=== PATIENT | female | born 1980 | race Caucasian/White ===

== ENCOUNTER 2023-08-16 04:04 | Inpatient (IN) ==
[2023-08-16] MEDS ORDERED: HALOPERIDOL LACTATE 5 MG/ML 1 ML VIAL IM STA (04:11)
[2023-08-16] MEDS ORDERED: LORazepam 1 MG/1 ML SYR ED Inj Use IV STA (04:11)
[2023-08-16] MEDS ORDERED: SODIUM CHLORIDE 0.9% 500 ML IV SCH (04:15)
--- NOTE | 2023-08-16 04:18 | Emergency Department Note ---
Impression & Plan AMS (altered mental status), Hx of psychosis ED Provider Note NAME: AB DICKEY AGE: 42 SEX: Female INFORMANT: Police ED PROVIDER(S): Macario Saunders MD CHIEF COMPLAINT: Altered mental status PLAN: Disposition: Admitted Outpatient prescription management: none Referral: none MEDICAL DECISION MAKING: Patient presented by EMS and police after exhibiting bizarre behavior and altered mental status. She was responding to internal stimuli and not following commands. She was thrashing about the bed. She did require physical hold and for her safety as well as staff safety chemical sedation was ordered with Haldol and Ativan. Patient rested comfortably with this. She was found to have an unremarkable CBC. Patient was found to have rhabdomyolysis with an elevated CK over 1000. She was given additional IV fluid hydration. Patient woke up and then was very agitated. She was scared and was verbally confrontational. I did meet with her and she calm down. She was given a sublingual dose of Ativan. IV was reestablished as she did pull her first IV out. Fluids were reinitiated. Patient was explained her rhabdo issue and need for treatment. She was in agreement. She was reevaluated by the psychiatric case packer and sealer. Consultation was placed with [facility] Del [facility]. Patient was evaluated in the ER for further management. Care/management discussed with: mission manager. Level of care consideration(s): After review of the information above and other included data, I feel the patient requires escalation of care to admission. Triage Nursing notes: reviewed and agree them. Vital Signs: reviewed and remarkable for no significant abnormalities Additional History obtained from: EMS and police Chronic Medical/Social Conditions affecting care: Psychosis Prior/ Outside/ External records reviewed: Prior ED records reviewed. Differential Diagnosis: Psychiatric, infection, hypoglycemia, electrolyte abnormalities, overdose, toxicologic, cardiac sources, intracerebral event, neurologic, trauma, as well as other pathologies. Diagnostics, independently interpreted by me: EC Lead ECG performed and revealed Normal sinus rhythm at 90, normal [place], QRS normal except for septal Q. No elevation or depression. No PACs or PVCs Cardiac Monitoring: Cardiac monitoring ordered by me: The patient was placed on continuous cardiac monitoring and observed. It revealed a normal sinus rhythm at 86 beats per minute without ectopy or evidence of dysrhythmia. Medical decision rules: none Imaging studies:Head CT without trauma, bleed or stroke. HPI: 42 year old Female arrives for evaluation of altered mental status. Patient is unable to provide any significant details for the history. Police note that they were called along with EMS due to her bizarre behavior. She was outside and was wet. Patient's significant other noted that she has not slept in 4 days. Patient does have a history of psychosis. Unsure if she has been compliant with medications. Police did raise concerns about possible stimulant use. PAST MEDICAL HISTORY: See Below, psychosis PAST SURGICAL HISTORY: See Below, SOCIAL HISTORY: See Below, smoker HOME MEDICATIONS: See Below ALLERGIES: See Below VITALS: See Below PHYSICAL EXAMINATION: GENERAL: Awake, alert, agitated-appearing, in moderate distress HENT: Normocephalic, atraumatic. Oropharynx unremarkable. EYES: Normal conjunctiva. Sclera non-icteric. NECK: Inspection normal. Non-tender. Supple. No nuchal rigidity. FROM. No masses. RESPIRATORY: Clear to auscultation. No wheezes. No rales. Normal respiratory effort. CARDIAC: Tachycardic rate. Normal rhythm. No murmurs. No rubs. Extremities warm and well perfused. Pulses equal. No JVD. GI: Soft, non-distended. No tenderness to palpation. No rebound or guarding. No masses. RECTAL: Deferred. MUSCULOSKELETAL: Atraumatic. Chest examination reveals no tenderness. The back is symmetrical on inspection without obvious abnormality. There is no CVA tenderness to palpation. No joint edema. LOWER EXTREMITIES: Calves are equal size bilaterally and non-tender. No edema. No discoloration. NEURO: Altered sensorium. Moving arms and legs vigorously. No focal deficits. Responding to internal stimuli but speech is relatively clear. SKIN: No rash or jaundice noted. Multiple drawings and markings from a marker noted on the patient's arms and legs. PSYCH: Patient unable to voice any suicidal or homicidal ideation. She is responding to internal stimuli. PROCEDURES: none CRITICAL CARE: I have personally spent 30 minutes of critical care time in the direct management of this patient. This includes bedside care, interpretation of diagnostic studies, and testing, discussion with consultants, patient, Police, and other required patient management activities. These minutes are in excess of all separately billable procedures. OBSERVATION NOTE: none Past Med/Surg History Medical History (Updated 08/16/23 @ 17:10 by Hector Del Real MD) Psychosis Social History Smoking Status: Current every day smoker Tobacco Type: E-cigarettes / Vaping Hx Substance Use: Yes Preferred Language: Martiniquais [employer] Maintenance Worker Required: No Beliefs That Will Affect Care: None Current Living Situation: Significant Other Feels Safe at Home: Yes Assistive Devices: None Allergies Allergies Allergy/AdvReac Type Severity Reaction Status Date / Time No Known Allergies Allergy Unverified 01/01/22 17:51 Home Meds Home Medications Medication Instructions Recorded Confirmed methadone 10 mg/5 mL oral solution 107 mg PO DAILY 01/01/22 01/09/22 Previous Rx's Medication Instructions Recorded gabapentin 300 mg capsule 300 mg PO BID #60 caps 08/18/23 Results & Data (ED) Vital Signs Vital Signs - 24 hr 08/16/23 04:12 08/16/23 04:12 08/16/23 05:01 Temperature 36.7 C Temperature Source Oral Pulse Rate 91 H 73 Pulse Rate [Apical] Respiratory Rate 18 Respiratory Effort / Characteristics Respiratory Depth Respiratory Pattern Blood Pressure 139/90 Blood Pressure [Right Arm] Blood Pressure Mean 106 Blood Pressure Mean [Right Arm] Pulse Oximetry 97 97 Oxygen Delivery Method Room Air Room Air Sepsis Recent Fever Within 48 Hours No Sepsis New/Unexplained Change in Mental Status N/A Sepsis Action Taken by Nursing No Action Required 08/16/23 05:30 08/16/23 06:00 Temperature Temperature Source Pulse Rate Pulse Rate [Apical] 71 71 Respiratory Rate 15 14 Respiratory Effort / Characteristics Non-Labored Respiratory Depth Normal Respiratory Pattern Regular Blood Pressure Blood Pressure [Right Arm] 104/80 92/60 L Blood Pressure Mean Blood Pressure Mean [Right Arm] 88 70 Pulse Oximetry 96 96 Oxygen Delivery Method Room Air Room Air Sepsis Recent Fever Within 48 Hours Sepsis New/Unexplained Change in Mental Status Sepsis Action Taken by Nursing Laboratory Data 08/16/23 04:24 08/18/23 05:45 Lab Results 08/16/23 08/16/23 08/16/23 Range/Units 04:24 04:48 05:37 WBC 8.34 (4.8-10.8) K/ul RBC 4.32 (4.20-5.40) M/uL Hgb 12.4 (12.0-16.0) g/dl Hct 37.6 (37.0-47.0) % MCV 87.0 (80.0-100.0) fL MCH 28.7 (25.0-34.0) pg MCHC 33.0 (32.0-36.0) g/dL RDW Std Deviation 45.8 (36.4-46.3) fL RDW Coeff of Luna 14.3 (11.5-14.5) % Plt Count 407 H (130-400) K/uL MPV 9.7 (9.4-12.4) fL Immature Gran % (Auto) 0.2 % Neut % (Auto) 70.6 % Lymph % (Auto) 23.4 % [place] % (Auto) 5.5 % Eos % (Auto) 0.1 % Baso % (Auto) 0.2 % Neut # (Auto) 5.88 (1.40-6.50) K/uL Lymph # (Auto) 1.95 (1.20-3.40) K/uL [place] # (Auto) 0.46 (0.11-0.59) K/uL Eos # (Auto) 0.01 (0.00-0.50) K/uL Baso # (Auto) 0.02 (0.00-0.20) K/uL Immature Gran # (Auto) 0.02 (0.01-0.20) K/uL PT 10.9 (9.0-12.0) Seconds INR 1.0 (0.9-1.1) Sodium 139 (136-145) mmol/L Potassium 3.3 L (3.5-5.1) mmol/L Chloride 105 (98-107) mmol/L Carbon Dioxide 27 (21-32) mmol/L Anion Gap 7 (3-11) BUN 13 (6-23) mg/dl Creatinine 0.85 (0.6-1.2) mg/dl Est Cr Clr Drug Dosing Not Reportable Est GFR ( Amer) 98.6 ml/min Est GFR (Non-Af Amer) 85.1 ml/min BUN/Creatinine Ratio 15.3 (10-20) Glucose 110 H (70-99(Fasting)) mg/dl Calcium 9.2 (8.6-10.3) mg/dl Magnesium 2.1 (1.7-2.4) mg/dl Total Bilirubin 0.4 (0.2-1.0) mg/dl AST 37 (13-39) U/L ALT 19 (7-52) U/L Alkaline Phosphatase 47 (34-104) U/L Total Creatine Kinase 1074 H (26-192) U/L Troponin I High Sens 5.1 (0-14) pg/ml Total Protein 7.7 (6.0-8.3) gm/dl Albumin 4.5 (3.4-5.0) gm/dl Globulin 3.2 (2.5-4.0) gm/dl Albumin/Globulin Ratio 1.4 (0.9-2) HCG, Qual Negative (Negative) Urine Color Dark Yellow Urine Appearance Turbid A (Clear) Urine pH 7.5 (4.5-7.5) Ur Specific [place] 1.025 (1.000-1.030) Urine Protein Trace H (Negative) Urine Glucose (UA) Negative (Negative) Urine Ketones Trace H (Negative) Urine Blood Negative (Negative) Urine Nitrite Negative (Negative) Urine Bilirubin Negative (Negative) Urine Urobilinogen Negative (Negative) Ur Leukocyte Esterase 1+ H (Negative) Urine WBC (Auto) 10-30 H (0-5) /hpf Urine RBC (Auto) 0-4 (0-4) /hpf U Hyaline Cast (Auto) 1-5 (0-5) /lpf U Epithel Cells (Auto) >30 H (0-5) /lpf Urine Bacteria (Auto) Negative (Negative) Salicylates < 3.0 L (3.0-30) mg/dl Urine Opiates Screen Neg (Neg) Ur Methadone, Qual Pos H (Neg) Acetaminophen 6 L (10-30) ug/ml Urine Barbiturates Neg (Neg) Ur Phencyclidine (PCP) Neg (Neg) U Amphetamin/Meth Scrn Neg (Neg) MDMA (Ecstasy) Screen Neg (Neg) U Benzodiazepines Scrn Neg (Neg) Ur Cocaine Metabolite Neg (Neg) U Marijuana (THC) Screen Pos H (Neg) Ethyl Alcohol mg/dL < 10.0 (<10.0) mg/dl SARS-CoV-2, RNA, NAAT (NEGATIVE) 08/16/23 Range/Units 05:38 WBC (4.8-10.8) K/ul RBC (4.20-5.40) M/uL Hgb (12.0-16.0) g/dl Hct (37.0-47.0) % MCV (80.0-100.0) fL MCH (25.0-34.0) pg MCHC (32.0-36.0) g/dL RDW Std Deviation (36.4-46.3) fL RDW Coeff of Luna (11.5-14.5) % Plt Count (130-400) K/uL MPV (9.4-12.4) fL Immature Gran % (Auto) % Neut % (Auto) % Lymph % (Auto) % [place] % (Auto) % Eos % (Auto) % Baso % (Auto) % Neut # (Auto) (1.40-6.50) K/uL Lymph # (Auto) (1.20-3.40) K/uL [place] # (Auto) (0.11-0.59) K/uL Eos # (Auto) (0.00-0.50) K/uL Baso # (Auto) (0.00-0.20) K/uL Immature Gran # (Auto) (0.01-0.20) K/uL PT (9.0-12.0) Seconds INR (0.9-1.1) Sodium (136-145) mmol/L Potassium (3.5-5.1) mmol/L Chloride (98-107) mmol/L Carbon Dioxide (21-32) mmol/L Anion Gap (3-11) BUN (6-23) mg/dl Creatinine (0.6-1.2) mg/dl Est Cr Clr Drug Dosing Est GFR ( Amer) ml/min Est GFR (Non-Af Amer) ml/min BUN/Creatinine Ratio (10-20) Glucose (70-99(Fasting)) mg/dl Calcium (8.6-10.3) mg/dl Magnesium (1.7-2.4) mg/dl Total Bilirubin (0.2-1.0) mg/dl AST (13-39) U/L ALT (7-52) U/L Alkaline Phosphatase (34-104) U/L Total Creatine Kinase (26-192) U/L Troponin I High Sens (0-14) pg/ml Total Protein (6.0-8.3) gm/dl Albumin (3.4-5.0) gm/dl Globulin (2.5-4.0) gm/dl Albumin/Globulin Ratio (0.9-2) HCG, Qual (Negative) Urine Color Urine Appearance (Clear) Urine pH (4.5-7.5) Ur Specific [place] (1.000-1.030) Urine Protein (Negative) Urine Glucose (UA) (Negative) Urine Ketones (Negative) Urine Blood (Negative) Urine Nitrite (Negative) Urine Bilirubin (Negative) Urine Urobilinogen (Negative) Ur Leukocyte Esterase (Negative) Urine WBC (Auto) (0-5) /hpf Urine RBC (Auto) (0-4) /hpf U Hyaline Cast (Auto) (0-5) /lpf U Epithel Cells (Auto) (0-5) /lpf Urine Bacteria (Auto) (Negative) Salicylates (3.0-30) mg/dl Urine Opiates Screen (Neg) Ur Methadone, Qual (Neg) Acetaminophen (10-30) ug/ml Urine Barbiturates (Neg) Ur Phencyclidine (PCP) (Neg) U Amphetamin/Meth Scrn (Neg) MDMA (Ecstasy) Screen (Neg) U Benzodiazepines Scrn (Neg) Ur Cocaine Metabolite (Neg) U Marijuana (THC) Screen (Neg) Ethyl Alcohol mg/dL (<10.0) mg/dl SARS-CoV-2, RNA, NAAT NEGATIVE (NEGATIVE) Administered Medications Discontinued Medications Haloperidol Lactate (Haloperidol Lactate 5 Mg/Ml 1 Ml Vial) 5 mg IM NOW STA Stop: 08/16/23 04:12 Last Admin: 08/16/23 04:21 Dose: 5 mg Documented By: KYLEE Sodium Chloride (Nss) 500 mls @ 999 mls/hr IV .Q31M [facility] Stop: 08/16/23 04:45 Last Infusion: 08/16/23 06:49 Dose: Infused Documented By: Admin: 08/16/23 05:57 Dose: 999 mls/hr Documented By: GABINO Sodium Chloride (Nss) 1,000 mls @ 200 mls/hr IV .Q5H [facility] Stop: 09/15/23 06:59 Last Infusion: 08/16/23 11:33 Dose: Infused Documented By: Admin: 08/16/23 08:40 Dose: 200 mls/hr Documented By: DARLIN Potassium Chloride/Sodium Chloride (Normal Saline W/20 Meq Kcl) 20 meq in 1,000 mls @ 150 mls/hr IV .Q6H40M [facility] Stop: 08/16/23 22:52 Last Admin: 08/16/23 23:40 Dose: Not Given Documented By: Infusion: 08/16/23 23:40 Dose: Infused Documented By: Infusion: 08/16/23 16:56 Dose: 0 mls/hr Documented By: Admin: 08/16/23 11:17 Dose: 150 mls/hr Documented By: DARLIN Lorazepam (Lorazepam 1 Mg/1 Ml Syr Ed Inj Use) 1 mg IV ONE STA Stop: 08/16/23 04:12 Last Admin: 08/16/23 04:21 Dose: 1 mg Documented By: KYLEE Lorazepam (Lorazepam 1 Mg Tab) 1 mg SL NOW STA Stop: 08/16/23 08:16 Last Admin: 08/16/23 08:19 Dose: 1 mg Documented By: DARLIN Methadone HCl (Methadone Oral Soln 2 Mg/Ml) 40 mg PO BID MARIA E Stop: 08/30/23 20:59 Last Admin: 08/18/23 08:01 Dose: 40 mg Documented By: Admin: 08/17/23 20:15 Dose: 40 mg Documented By: Admin: 08/17/23 08:30 Dose: 40 mg Documented By: Admin: 08/16/23 22:41 Dose: 40 mg Documented By: KATE Non-Formulary Medication (Patient's Own Controlled Med 1) 1 each PO BID [facility]IA E Stop: 08/30/23 20:59 Last Admin: 08/18/23 08:01 Dose: Not Given Documented By: Admin: 08/17/23 20:15 Dose: Not Given Documented By: Admin: 08/17/23 08:31 Dose: Not Given Documented By: Admin: 08/16/23 22:42 Dose: Not Given Documented By: KATE Olanzapine (Olanzapine 10 Mg Tab) 5 mg PO BID MARIA E Stop: 09/15/23 10:14 Last Admin: 08/18/23 07:47 Dose: Not Given Documented By: Admin: 08/17/23 20:15 Dose: Not Given Documented By: Admin: 08/17/23 08:32 Dose: Not Given Documented By: Admin: 08/16/23 22:41 Dose: 5 mg Documented By: Admin: 08/16/23 11:22 Dose: 5 mg Documented By: MT Imaging Data Radiologist's Impression: Head CT 08/16/23 04:12 Exam(s): CT HEAD Without Contrast EXAM: CT Head Without Intravenous Contrast CLINICAL HISTORY: Reason for exam: AMS. TECHNIQUE: Axial computed tomography images of the head/brain without intravenous contrast. CTDI is 35.22 mGy and DLP is 624.41 mGy-cm. Automated exposure control was utilized for the study. A dose lowering technique was utilized adhering to the principles of ALARA. COMPARISON: No relevant prior studies available. FINDINGS: Brain: Unremarkable. No hemorrhage. No significant white matter disease. No edema. Ventricles: Unremarkable. No ventriculomegaly. Bones/joints: Unremarkable. No acute fracture. Soft tissues: Unremarkable. Sinuses: Unremarkable as visualized. No acute sinusitis. Mastoid air cells: Unremarkable as visualized. No mastoid effusion. IMPRESSION: Normal head/brain CT. Electronically signed by: Nahun Martinez MD 08/16/23 05:59 AM Discharge Plan Visit Data Chief Complaint: Mental Health Evaluation ED Provider: Macario Saunders Discharge Problem: AMS (altered mental status), Hx of psychosis Patient Disposition: Admitted As Inpatient Discharge Instructions Interventions: ED Discharge Assessment Last Done: 08/16/23 09:33
[2023-08-16 04:39] LABS: Basophils # (auto) 0.02 K/uL (0.00-0.20); Basophils % (auto) 0.2 %; Eosinophils # (auto) 0.01 K/uL (0.00-0.50); Eosinophils % (auto) 0.1 %; Hematocrit (blood only) 37.6 % (37.0-47.0); Hemoglobin 12.4 g/dl (12.0-16.0); Immature Granulocytes # (auto) 0.02 K/uL (0.01-0.20); Immature Granulocytes % (auto) 0.2 %; Lymphocytes # (auto) 1.95 K/uL (1.20-3.40); Lymphocytes % (auto) 23.4 %; Mean Corpuscular Hemoglobin 28.7 pg (25.0-34.0); Mean Platelet Volume 9.7 fL (9.4-12.4); Monocytes # (auto) 0.46 K/uL (0.11-0.59); Monocytes % (auto) 5.5 %; Neutrophils # (auto) 5.88 K/uL (1.40-6.50); Neutrophils % (auto) 70.6 %; Platelet Count 407 K/uL (130-400); RDW Coefficient of Variation 14.3 % (11.5-14.5); RDW Standard Deviation 45.8 fL (36.4-46.3); Red Blood Count 4.32 M/uL (4.20-5.40); White Blood Count 8.34 K/ul (4.8-10.8)
[2023-08-16 04:53] LABS: Pregnancy Test, Serum Negative (Negative)
[2023-08-16 04:54] LABS: Alanine Aminotransferase 19 U/L (7-52); Albumin Globulin Ratio 1.4 (0.9-2); Albumin Level 4.5 gm/dl (3.4-5.0); Alkaline Phosphatase 47 U/L (34-104); Anion Gap 7 (3-11); Aspartate Aminotransferase 37 U/L (13-39); BUN Creatinine Ratio 15.3 (10-20); Bilirubin,Total 0.4 mg/dl (0.2-1.0); Blood Urea Nitrogen 13 mg/dl (6-23); Calcium 9.2 mg/dl (8.6-10.3); Carbon Dioxide 27 mmol/L (21-32); Chloride 105 mmol/L (98-107); Creatine Kinase 1074 U/L (26-192); Est GFR (African American) 98.6 ml/min; Est GFR (Non-African American) 85.1 ml/min; Globulin 3.2 gm/dl (2.5-4.0); Glucose 110 mg/dl (70-99(Fasting)); Magnesium 2.1 mg/dl (1.7-2.4); Potassium 3.3 mmol/L (3.5-5.1); Sodium 139 mmol/L (136-145); Total Protein 7.7 gm/dl (6.0-8.3)
[2023-08-16 05:01] LABS: Troponin I High Sensitivity 5.1 pg/ml (0-14)
[2023-08-16 05:38] LABS: Acetaminophen 6 ug/ml (10-30); Salicylate < 3.0 mg/dl (3.0-30)
[2023-08-16 05:47] LABS: Prothrombin Time 10.9 Seconds (9.0-12.0)
[2023-08-16 05:59] LABS: Appearance Urine Turbid (Clear); Bacteria Urine Automated Negative (Negative); Bilirubin Urine Negative (Negative); Blood Urine Negative (Negative); Color Urine Dark Yellow; Epithelial Cell Urine Auto >30 /lpf (0-5); Glucose Urine UA Negative (Negative); Ketones Urine Trace (Negative); Leukocyte Esterase Urine 1+ (Negative); Nitrite Urine Negative (Negative); RBC Urine Automated 0-4 /hpf (0-4); Specific Gravity Urine 1.025 (1.000-1.030); Urobilinogen Urine Negative (Negative); pH Urine 7.5 (4.5-7.5)
--- NOTE | 2023-08-16 06:00 | CT Scan Report ---
Exam(s): CT HEAD Without Contrast EXAM: CT Head Without Intravenous Contrast CLINICAL HISTORY: Reason for exam: AMS. TECHNIQUE: Axial computed tomography images of the head/brain without intravenous contrast. CTDI is 35.22 mGy and DLP is 624.41 mGy-cm. Automated exposure control was utilized for the study. A dose lowering technique was utilized adhering to the principles of ALARA. COMPARISON: No relevant prior studies available. FINDINGS: Brain: Unremarkable. No hemorrhage. No significant white matter disease. No edema. Ventricles: Unremarkable. No ventriculomegaly. Bones/joints: Unremarkable. No acute fracture. Soft tissues: Unremarkable. Sinuses: Unremarkable as visualized. No acute sinusitis. Mastoid air cells: Unremarkable as visualized. No mastoid effusion. IMPRESSION: Normal head/brain CT. Electronically signed by: Nahun Martinez MD 08/16/23 05:59 AM
[2023-08-16 06:02] LABS: Protein Urine Trace (Negative)
[2023-08-16 06:44] LABS: Amphetamines+Metham, Urine Neg (Neg); Barbiturates, Urine Neg (Neg); Benzodiazepine, Urine Neg (Neg); Cocaine, Urine Neg (Neg); MDMA (Ecstacy), Urine Neg (Neg); Marijuana, Urine Pos (Neg); Methadone, Urine Pos (Neg); Opiate, Urine Neg (Neg); Phencyclidine, Urine Neg (Neg)
[2023-08-16] MEDS ORDERED: SODIUM CHLORIDE 0.9% 1,000 ML IV SCH (07:00)
--- NOTE | 2023-08-16 07:28 | History & Physical Report ---
Date of Service August 16, 2023 Assessment & Plan (1) Psychosis: Plan: Reportedly the patient is on outpatient Zyprexa. She has a history of PTSD there is also prescription for methadone that is not in the PDMP. Will keep the patient in a safe condition offer as needed Ativan and IV Haldol will have a psychiatric consultation with psychosis Calcium is normal, Tsh added to labs and pending, there is a history of soft tissue mass in neck that is deemed a lipoma on recent neck U/S (2) Elevated CK: Plan: This is mild and likely secondary to moving about and perhaps being brought in by EMS. Will complete hydration and recheck a CK later in the afternoon (3) Hypokalemia: Plan: Hypokalemia will be repleted by intravenous fluids (4) Substance abuse: Plan: will restart methadone at approx 60% of her home dose as this has been unclear of late History of Present Illness Primary Care Provider: Ksihan Peters DO 42-year-old field male with history of mental health issues who was brought in by EMS and police services after being found in an altered state outside in the rain with exposure. Patient reportedly was in the ER previously and required some Zyprexa. She has previously also been inpatient in our local psychiatric facility at the [facility]. In the emergency department the patient was given a milligram of lorazepam and 5 mg of Haldol IM. She is found to be mildly hypokalemic and has mild elevation of her CK to 1000 which is likely from physical activity. She has no renal distress abnormal liver function test she has normal imaging of her brain and no suspicion of infectious etiologies based upon her laboratory results and urinalysis. Recommendation to have her on the medical reed until she is deemed medically cleared and discussions will be had for voluntary admission versus confirmation of outpatient psychiatric follow-up Later visits in the day the patient was more calm down reliably making sense. Psychiatric liaison still will talk to patient anticipating that if the patient is agreeable she may go home with outpatient psychiatric follow-up Allergies Allergy/AdvReac Type Severity Reaction Status Date / Time No Known Allergies Allergy Unverified 01/01/22 17:51 Home Medications Medication Instructions Recorded Confirmed Type methadone 10 mg/5 mL oral solution 107 mg PO DAILY 01/01/22 01/09/22 History olanzapine 5 mg PO BID 01/09/22 01/09/22 History Past Med/Surg History Medical History (Updated 08/16/23 @ 17:10 by Hector Del Real MD) Psychosis Social History Smoking Status: Current every day smoker Tobacco Type: E-cigarettes / Vaping Hx Substance Use: Yes Preferred Language: Ethiopian [employer] Media Specialist Required: No Beliefs That Will Affect Care: None Current Living Situation: Significant Other Feels Safe at Home: Yes Assistive Devices: None Physical Exam Physical Exam: The patient appeared well nourished and normally developed. Vital signs as documented. Head exam is normocephalic atraumatic Neck is without JVD, thyromegaly, or carotid bruits. Lungs are clear to auscultation, no focal loss of breath sounds Cardiac exam, Rhythm is regular.. No murmurs, rubs or gallops. Abdominal exam reveals normal bowel sounds, soft non tender, no masses Extremities are nonedematous and both pedal pulses are present Neurologic exam is alert and oriented, no focal loss of strength or sensation Skin is without bruises or rashes Psychologically is with concerns possible substance issues and both anxiety and depression Results & Data Results & Data Vital Signs (Past 12 Hours) Vital Signs Temp Pulse Pulse Resp BP BP Pulse Ox 08/16/23 06:00 71 14 92/60 L 96 08/16/23 05:30 71 15 104/80 96 08/16/23 05:01 73 08/16/23 04:12 97 08/16/23 04:12 98.1 F 91 H 18 139/90 97 O2 Del Method 08/16/23 06:00 Room Air 08/16/23 05:30 Room Air 08/16/23 05:01 08/16/23 04:12 Room Air 08/16/23 04:12 Room Air Laboratory Results reviewed cbc reviewed chemistry Code Status & VTE Plan VTE Prophylaxis Plan VTE Prophylaxis will be ordered: Yes PG Care Time/CCT Total # of Minutes Spent Total Time Spent with Patient: Total time spent is greater than 50% in coordination of care (as documented) at patient's floor/unit and/or counseling patient: Coding Level of Care Code 94577 INT INP/OBS CARE 2/55MIN Diagnoses Psychosis F29 Psychosis type: unspecified psychosis type Elevated CK R74.8 Hypokalemia E87.6 Substance abuse F19.10 (1) Psychosis Psychosis type: unspecified psychosis type Qualified Code(s): F29 - Unspecified psychosis not due to a substance or known physiological condition
[2023-08-16] MEDS ORDERED: LORazepam 1 MG TAB SL STA (08:15)
[2023-08-16] MEDS ORDERED: LORazepam 1 MG in SYRINGE 0.5 ML IV PRN (09:33)
[2023-08-16] MEDS ORDERED: HALOPERIDOL LACTATE 5 MG/ML 1 ML VIAL IV PRN (09:33)
[2023-08-16] MEDS ORDERED: ONDANSETRON INJ 2 MG/ML 2 ML VIAL IV PRN (09:33)
[2023-08-16] MEDS ORDERED: ACETAMINOPHEN 325 MG TAB PO PRN (09:33)
[2023-08-16] MEDS ORDERED: ALUMINUM/MAGNESIUM SUSP 30 ML UDC PO PRN (09:33)
[2023-08-16] MEDS: NSS + 20MEQ KCL 20 MEQ/1,000 ML BAG IV SCH ×2 (11:17→23:40)
[2023-08-16] MEDS: OLANZapine 10 MG TAB PO SCH ×3 (11:18→22:41)
[2023-08-16] MEDS ORDERED: HALOPERIDOL LACTATE 5 MG/ML 1 ML VIAL IM PRN (17:27)
[2023-08-16] MEDS ORDERED: LORazepam 0.5 MG TAB PO PRN (17:27)
--- NOTE | 2023-08-16 17:31 | Electrocardiogram Report ---
Test Reason : Blood Pressure : / mmHG Vent. Rate : 090 BPM Atrial Rate : 090 BPM P-R Int : 118 ms QRS Dur : 072 ms QT Int : 386 ms P-R-T Axes : 063 075 056 degrees QTc Int : 472 ms Normal sinus rhythm with sinus arrhythmia Confirmed by Gabo Yadav ([id number]) on 08/16/2023 5:30:48 PM Referred By: Confirmed By:Chris Yadav
--- NOTE | 2023-08-16 21:58 | Communication Note ---
Date of Service: August 16, 2023 I tried to see pt for a psychiatric consultation but she was too sleepy to assess. It seems likely that I'll be more able to assess her tomorrow.
[2023-08-16] MEDS: METHADONE ORAL SOLN 2 MG/ML PO SCH (22:41)
[2023-08-16] MEDS: PATIENT'S OWN CONTROLLED MED 1 PO SCH (22:42)
[2023-08-17] MEDS: METHADONE ORAL SOLN 2 MG/ML PO SCH ×2 (08:30→20:15)
[2023-08-17] MEDS: PATIENT'S OWN CONTROLLED MED 1 PO SCH ×2 (08:31→20:15)
[2023-08-17] MEDS: OLANZapine 10 MG TAB PO SCH ×2 (08:32→20:15)
--- NOTE | 2023-08-17 17:00 | Hospitalist Progress Note ---
Date of Service August 17, 2023 Assessment & Plan (1) Psychosis: Plan: Reportedly the patient is on outpatient Zyprexa. She has a reported history of PTSD, anxiety, and depression. Patient denies psychosis or bipolar diagnoses. There is also prescription for methadone that is not in the PDMP - patient reports from [facility] which is closed on the weekend so unable to confirm. PRN Ativan and IV Haldol Psychiatric consultation pending - attempt made 08/16, to attempt again 08/17 Calcium is normal, TSH normal, otherwise unremarkable labs Complete UDS pending - so far positive methadone qualitative (metabolites/confirmation pending) and THC screen (2) Elevated CK: Plan: This is mild and likely secondary to moving about and perhaps being brought in by EMS Improved (3) Hypokalemia: Plan: Recheck in AM (4) Substance abuse: Plan: Methadone at lower than home dose as home dose uncertain and facility she reports she goes to is closed on the weekend for confirmation Admission and Anticipated Discharge Date Admission Date: August 16, 2023 Subjective Overall feeling better this morning. Denies any acute concerns though does feels some slight bit of chest discomfort. Denies any SOB. States she's been feeling really stressed and overwhelmed recently. Also notes she was feeling sick with respiratory illness. Denies racing thoughts. States she was previously in the [facility] for a stay when she was feeling similarly very stressed and overwhelmed and sick with the Flu. Reports she slept well overnight and not feeling as stressed today. She states she has a prior diagnosis of anxiety and depression. Reports gabapentin has been helpful for her mood symptoms. Denies any diagnosis of psychosis or bipolar. Now able to remember that she gets her methadone through [facility] - thinks her usual dose is either 120 or 112. Review of Systems Review of Systems: Per subjective Physical Exam Physical Exam: General: NAD Cardiovascular: RRR, no M/R/G Pulmonary: CTAB, no W/R/R Abdomen: Soft, NT/ND, no guarding Extremities: Moving all extremities, no pedal edema Integumentary: No suspicious rash or lesion on exposed skin Neurologic: AAOx3, no focal deficits Psychiatric: Appropriate mood/affect Results & Data Results & Data Vital Signs (Past 12 Hours) Vital Signs Temp Pulse Resp BP Pulse Ox O2 Del Method 08/17/23 15:48 36.8 C 73 18 138/81 96 Room Air 08/17/23 08:20 36.7 C 80 18 118/79 98 Room Air PG Care Time/CCT Total # of Minutes Spent Total Time Spent with Patient: Total time spent is greater than 50% in coordination of care (as documented) at patient's floor/unit and/or counseling patient: Coding Level of Care Code 18632 SUB INP/OBS CARE 2/35MIN Diagnoses Psychosis F29 Psychosis type: unspecified psychosis type Elevated CK R74.8 Hypokalemia E87.6 Substance abuse F19.10 (1) Psychosis Psychosis type: unspecified psychosis type Qualified Code(s): F29 - Unspecified psychosis not due to a substance or known physiological condition
--- NOTE | 2023-08-17 18:37 | Psychiatric Consultation ---
Date of Consultation August 17, 2023 Impression / Recommendations Impression 42 y/o F with a history of episodic strange behavior who was brought by police acting strange. She had rhabdomyolysis with no clear etiology. After a relatively brief time in the ED under observation on the hospitalist service she has cleared greatly. She attributes the problem to having had difficulty taking her medications consistently and getting sativa cannabis instead of indica at the dispensary. While these don't really seem like plausible explanations, it does seem clear that she had not been using methamphetamine (which the police, based on their observations, had thought possible). The symptoms now seem to have cleared completely and she currently presents as focused and organized. Overall I spent a total of 63 minutes on the floor for this consultation assessment including review of chart records, review of test results, direct evaluation of the patient [id number], counseling the patient, medication education with the patient, risk assessment, discussion with the psychiatric liaison nurse, and documentation in the electronic health record. (1) Psychosis: Psychosis type: unspecified psychosis type Qualified Code(s): F29 - Unspecified psychosis not due to a substance or known physiological condition Plan * Pt can safely be discharged to home from a psychiatric perspective * She does not require any behavioral or suicide precautions * She should follow up with her extant outpatient team * Olanzapine is not one of pt's current outpatient medications so she does not require a prescription for it on discharge * Gabapentin 600 mg 1/2 tab BID is a current outpatient medication and she may require a discharge prescription (and I have no clue why she's not been prescribed 300 mg BID) Psych History Identifying Data AB DICKEY is a 42-year-old F with a history of opioid use disorder and bipolar disorder, admitted on 08/16/2023 for rhabdomyolysis. Consult is by the hospitalist service for "is pt a voluntary admission". Chief Complaint "I'm feeling good". History of Present Illness As part of a thorough review of the available medical records, I have read and and incorporated into my assessment the following note by the ED physician: "Patient presented by EMS and police after exhibiting bizarre behavior and altered mental status. She was responding to internal stimuli and not following commands. She was thrashing about the bed. She did require physical hold and for her safety as well as staff safety chemical sedation was ordered with Haldol and Ativan. Patient rested comfortably with this. She was found to have an unremarkable CBC. Patient was found to have rhabdomyolysis with an elevated CK over 1000. She was given additional IV fluid hydration. Patient woke up and then was very agitated. She was scared and was verbally confrontational. I did meet with her and she calm down. She was given a sublingual dose of Ativan. IV was reestablished as she did pull her first IV out. Fluids were reinitiated. Patient was explained her rhabdo issue and need for treatment. She was in agreement." "42 year old Female arrives for evaluation of altered mental status. Patient is unable to provide any significant details for the history. Police note that they were called along with EMS due to her bizarre behavior. She was outside and was wet. Patient's significant other noted that she has not slept in 4 days. Patient does have a history of psychosis. Unsure if she has been compliant with medications. Police did raise concerns about possible stimulant use. " the following note by the hospitalist: "42-year-old field male with history of mental health issues who was brought in by EMS and police services after being found in an altered state outside in the rain with exposure. Patient reportedly was in the ER previously and required some Zyprexa. She has previously also been inpatient in our local psychiatric facility at the [facility]. In the emergency department the patient was given a milligram of lorazepam and 5 mg of Haldol IM. She is found to be mildly hypokalemic and has mild elevation of her CK to 1000 which is likely from physical activity. She has no renal distress abnormal liver function test she has normal imaging of her brain and no suspicion of infectious etiologies based upon her laboratory results and urinalysis. Recommendation to have her on the medical reed until she is deemed medically cleared and discussions will be had for voluntary admission versus confirmation of outpatient psychiatric follow-up Later visits in the day the patient was more calm down reliably making sense. Psychiatric liaison still will talk to patient anticipating that if the patient is agreeable she may go home with outpatient psychiatric follow-up" the following note by the ED psychiatric rn case manager: "Ab was brought to ED by EMS called by her boyfriend due to erratic behavior. Ab presented with rapid, pressured speech and unable to focus on questions being asked. Per EMS, boyfriend stated she has not slept for 4 days. Spoke with Ab and she had a difficulty time providing information on events that occurred prior to coming to ED. Ab stated she had a PTSD, anxiety attack. She stated she had some "short term memory loss too." She stated she is diagnosed with depression and anxiety. She stated she is not diagnosed with PTSD "but I know I have it because I've been through so much shit in my life." Ab stated she remembers watching a movie. She said she then "tried to get a shower." Ab then stated "I woke up a midnight to pee." Ab stated she had hair in her mouth due to "cutting my hair before ambulance came." She stated "the ambulance people scare me because they confused me." She denies any SI/HI/SIB. She denies hallucination. She admits to paranoid thoughts. Ab stated she lives with her "friend, boyiend - I don't know what the fuck he is. He controls me. He's a controlling mother "fn" asshole." Ab stated she went outside to smoke a cigarette and her dog, Rebekah got away from her. She stated the next thing she know was that ambulance came up her land. Ab stated she works at [employer] and has been "overworked lately." Ab stated she has not slept much. Ab stated "I remember taking a hit of my vape pen." Ab stated she gets medical marijuana at the dispensary and "they don't know what they are giving people. I asked for Indigo and they sold me Sativa." Ab denies alcohol or other substance use. She denies medical issues. She stated she is prescribed methadone and gabapentin. Ab stated she don't know who prescribed her mediation. She denies having psychiatrist, therapist, or rn case manager. Luz Marina reported to police that Ab "trashed the house." He stated her behavior is erratic and she went outside and was writing on her upper legs with a red sharpy. Patient was medicated for her safety and safety of staff in the ED due to erratic behavior. Ab was crying stating "what is going on" and fell asleep. Spoke with Dr. Saunders - patient being medically admitted for Rhabdo." and the following notes by the psychiatric liaison nurses: 08/16/2023: "Rounded on this patient who is lying in bed curled up in a blanket. She does not respond to verbal initially, but did respond when RN stood directly in front of her. She was asked if she knew why she was here and she did not. She was reminded of her admission criteria and she was surprised. She was advised to drink lots of fluids, because she kept removing her IV. She was asked if she intends to leave AMA and he states that no she does not, "It's warm here." She states that she felt "flu-ghada" and that she "keeps her meds in a safe and she has trouble keeping track of them." Her story is not linear but it is consistent and she is able to fill in more details. She states that she feels a little better now than she did two days ago. She completed the PHQ 9 with a score of 2 and Q9 of 0. She denies need for psych services at this time. She goes to a methadone clinic in [place] and has a rn case manager there that she meets with monthly. She gets Methadone 2 weeks at a time. She was a dvised of her agitated status requiring PRN's and she agreed that she gets that way sometimes. She says that she smokes cigarettes but does not want nicotine replacement. In addition to Gabapentin and Methadone she uses medically THC vapes. She turned over in bed at one point and kept talking to the RN without making eye contact. She states that she wants to rest and still feels unwell. She appears to be sweating profusely. " 08/17/2023: "Patient seen on rounds, alert and oriented x 4 - bright affect, denies SI/HI, denies hallucinations/delusions, states she feels so much better after a few days of good rest, much more organized at this time, she is not interested in outpatient services as she is in-between insurance but gets her psych meds through her [facility] PCP - she states "I have had issues keeping my medications straight which concerns me but I'm just gonna have to come up with a better system", currently employed at [employer], denies other needs at this time. " Review of the medical record reveals previous ED visits 01/02/2023 with suicidality from which she was referred to [facility] and 01/11/2024 with agitation and suicidal thoughts that cleared and from which she was sent home. Review of pertinent labs reveals they are significant for CK level of 1074 U/L. A urine toxicology screen was positive for metabolites of cannabis and met hadone but not for amphetamines. BAL was <10 mg/dL. screen was negative. Pt was initially confused and agitated, having to be medicated. She remained confused for much of yesterday and was intermittently drowsy. Today she has been clear and focused. Pt has scant recall of the events leading to admission, saying "I guess I was locked out of the house or something". She has only hazy recall of interacting with police. However, today she was able to engage in an extended (ca 40-minute) conversation in a focused, appropriate manner with no evidence of mood or thought disorder symptoms. She has not taken the olanzapine listed among her home medications "for ages" and instead takes gabapentin 300 mg BID (for some reason as half of a 600 mg tablet BID). She finds this very helpful for anxiety and for keeping her mood stable. She goes to the methadone clinic in [place] twice a week and has been on "take-home" methadone for about 5 years (implying very consistently showing evidence on toxicology screening of not using inappropriate substances. She is alert, fully-oriented, pleasant, and appropriate. affect is cheerfully euthymic. Speech of normal latency, rate, duration, and volume with normal inflection and prosody. Her throught processes are clear, logical, and goal- oriented. There is no evidence of psychosis or significant mood symptoms. Allergies Allergy/AdvReac Type Severity Reaction Status Date / Time No Known Allergies Allergy Unverified 01/01/22 17:51 Home Medications Medication Instructions Recorded Confirmed Type methadone 10 mg/5 mL oral solution 107 mg PO DAILY 01/01/22 01/09/22 History gabapentin 300 mg capsule 300 mg PO BID #60 caps 08/18/23 Rx Patient History Medical History (Updated 08/16/23 @ 17:10 by Hector Del Real MD) Psychosis Social History Smoking Status: Current every day smoker Tobacco Type: E-cigarettes / Vaping Hx Substance Use: Yes Preferred Language: Kazakh Manager Medicaid Required: No Beliefs That Will Affect Care: None Current Living Situation: Significant Other Feels Safe at Home: Yes Assistive Devices: None Physical Exam Vital Signs (Past 24 Hours): Last Vital Signs Temp 36.8 C 08/17/23 15:48 Pulse 73 08/17/23 15:48 Resp 18 08/17/23 15:48 BP 138/81 08/17/23 15:48 Pulse Ox 96 08/17/23 15:48 O2 Del Method Room Air 08/17/23 15:48 Exam Statement: Physical exams were performed in the ED and by the admitting hospitalist for the purposes of medical clearance. I accept those physicals as correct and adequate and have incorporated that information into my assessment. Review of Systems Psychiatric: no depression, no hopelessness, no abnormal sleep pattern, no suicidal ideation, no anxiety, no confusion, no paranoia, no hallucinations and no substance abuse Results & Data (PSY) Medications Administered Methadone HCl (Methadone Oral Soln 2 Mg/Ml) 40 mg PO BID MARIA E Stop: 08/30/23 20:59 Last Admin: 08/17/23 08:30 Dose: 40 mg Documented By: Admin: 08/16/23 22:41 Dose: 40 mg Documented By: KATE Non-Formulary Medication (Patient's Own Controlled Med 1) 1 each PO BID MARIA E Stop: 08/30/23 20:59 Last Admin: 08/17/23 08:31 Dose: Not Given Documented By: Admin: 08/16/23 22:42 Dose: Not Given Documented By: KATE Olanzapine (Olanzapine 10 Mg Tab) 5 mg PO BID MARIA E Stop: 09/15/23 10:14 Last Admin: 08/17/23 08:32 Dose: Not Given Documented By: Admin: 08/16/23 22:41 Dose: 5 mg Documented By: Admin: 08/16/23 11:22 Dose: 5 mg Documented By: DARLIN Coding Level of Care Code 29390 U Intl Hosp Care Lvl 3 Diagnoses Psychosis F29 Psychosis type: unspecified psychosis type Time Spent (min) 63
[2023-08-18 06:39] LABS: Anion Gap 8 (3-11); BUN Creatinine Ratio 16.2 (10-20); Blood Urea Nitrogen 12 mg/dl (6-23); Calcium 9.5 mg/dl (8.6-10.3); Carbon Dioxide 26 mmol/L (21-32); Chloride 104 mmol/L (98-107); Est GFR (African American) 116.6 ml/min; Est GFR (Non-African American) 100.6 ml/min; Glucose 136 mg/dl (70-99(Fasting)); Sodium 138 mmol/L (136-145)
[2023-08-18] MEDS: OLANZapine 10 MG TAB PO SCH (07:47)
[2023-08-18] MEDS: PATIENT'S OWN CONTROLLED MED 1 PO SCH (08:01)
[2023-08-18] MEDS: METHADONE ORAL SOLN 2 MG/ML PO SCH (08:01)
--- NOTE | 2023-08-18 09:14 | Discharge Summary ---
Date of Service August 18, 2023 Admission HPI Per Admitting Provider 42-year-old field male with history of mental health issues who was brought in by EMS and police services after being found in an altered state outside in the rain with exposure. Patient reportedly was in the ER previously and required some Zyprexa. She has previously also been inpatient in our local psychiatric facility at the [facility]. In the emergency department the patient was given a milligram of lorazepam and 5 mg of Haldol IM. She is found to be mildly hypokalemic and has mild elevation of her CK to 1000 which is likely from physical activity. She has no renal distress abnormal liver function test she has normal imaging of her brain and no suspicion of infectious etiologies based upon her laboratory results and urinalysis. Recommendation to have her on the medical reed until she is deemed medically cleared and discussions will be had for voluntary admission versus confirmation of outpatient psychiatric follow-up Later visits in the day the patient was more calm down reliably making sense. Psychiatric liaison still will talk to patient anticipating that if the patient is agreeable she may go home with outpatient psychiatric follow-up Admission Exam Per Admitting Provider The patient appeared well nourished and normally developed. Vital signs as documented. Head exam is normocephalic atraumatic Neck is without JVD, thyromegaly, or carotid bruits. Lungs are clear to auscultation, no focal loss of breath sounds Cardiac exam, Rhythm is regular.. No murmurs, rubs or gallops. Abdominal exam reveals normal bowel sounds, soft non tender, no masses Extremities are nonedematous and both pedal pulses are present Neurologic exam is alert and oriented, no focal loss of strength or sensation Skin is without bruises or rashes Psychologically is with concerns possible substance issues and both anxiety and depression Principal Diagnosis Psychosis, rhabdomyolysis Discharge Exam General: NAD Cardiovascular: RRR, no M/R/G Pulmonary: CTAB, no W/R/R Abdomen: Soft, NT/ND, no guarding Extremities: Moving all extremities, no pedal edema Integumentary: No suspicious rash or lesion on exposed skin Neurologic: AAOx3, no focal deficits Psychiatric: Appropriate mood/affect, normal speech and behavior Discharge Data Allergies Allergy/AdvReac Type Severity Reaction Status Date / Time No Known Allergies Allergy Unverified 01/01/22 17:51 Consultations 08/16/23 07:16 ED Decision to Admit Stat 08/16/23 09:33 Consult Psychiatry Routine Ordered Studies 08/16/23 04:12 CT head/brain wo con Stat Hospital Course (1) Psychosis: Psych consultation performed 08/17 PM provided clarity: -Patient hx of opioid use disorder and bipolar disorder -Current admission from unspecified psychosis that has resolved -Notes patient attributes problem to not taking medications consistently and receiving sativa cannabis instead of indica at the dispensary -Patient deemed to be safe for discharge home -F/u with outpatient team -No olanzapine on discharge -Gabapentin 300mg BID on discharge Patient reports she receives her methadone every 2 weeks from [facility] (closed on the weekend so unable to confirm) Received dose of Zyprexa inpatient, PRN Ativan and IV Haldol available whil inpatient but not used Calcium is normal, TSH normal, otherwise unremarkable labs Complete UDS pending - so far positive methadone qualitative (metabolites/confirmation pending) and THC screen (2) Elevated CK: This is mild and likely secondary to moving about and perhaps being brought in by EMS Improved (3) Hypokalemia: Resolved (4) Substance abuse: Patient reports she receives her methadone every 2 weeks from [facility] (closed on the weekend so unable to confirm) Reduced dose while inpatient, can resume home dosing on discharge Complete UDS: positive methadone qualitative (metabolites/confirmation pending) and positive THC screen Total Time Total Time Spent Total Time Spent (In Minutes): 35 Total Time Includes: Examination of the Patient, Discharge Planning and Medication Reconciliation Discharge Plan Discharge Items Patient Disposition: Home - Self-Care Reason For Visit: RHABDOMYOLYSIS, HYPOKALEMIA, PSYCHOSIS Discharge Diagnosis: Rhabdomyolysis, hypokalemia, behavioral abnormality Activity: Resume your previous activity Non-emergency contact: Primary Care Provider Call non-emergency contact if: your symptoms worsen Follow-up/Referrals: Kishan Peters DO [Primary Care Provider] - (FOLLOW UP WITH YOUR PRIMARY CARE PHYSICIAN IN 7-10 DAYS FOR A HOSPITAL FOLLOW UP APPOINTMENT.) Diet: Regular Addtl Attending Provider Instructions: Continue your current methadone. A new prescription for gabapentin was sent to your pharmacy. Please ensure follow up with your PCP and methadone clinic. Please consider establishing with a psychiatrist and/or therapist on a regular basis. Pending Studies at Discharge: No Stand-Alone Forms: My [facility], Work/School Release, Smoking Cessation Medications and DC Order Prescriptions: New gabapentin 300 mg capsule 300 mg PO BID Qty: 60 0RF Continued methadone 10 mg/5 mL Solution 107 mg PO DAILY Discontinued olanzapine 10 mg tablet 5 mg PO BID Discharge Orders: Discharge Order (Routine); Ordered 08/18/23 Ordered By: Chantell Gracia Admission Data Admit Date/Time: 08/16/23 07:22 Attending Provider: Chantell Gracia Admit Provider: Hector Del Real Primary Care Provider: Kishan Peters Other Providers: Hector Del Real; Ann Davison; Sangeeta Humphrey; Nicholas Epstein; Padilla Kumar Other Interventions: Discharge Summary Assessment (RN) Last Done: 08/18/23 09:42 Coding Level of Care Code 06332 INP/OBS DISCH >30 MIN Diagnoses Psychosis F29 Psychosis type: unspecified psychosis type Elevated CK R74.8 Hypokalemia E87.6 Substance abuse F19.10
[2023-08-21 00:18] LABS: Marijuana Quant, GCMS Urine 3958 ng/mL (<5); Methadone, Ur Metabolite >10000 ng/mL (<100); Methadone, Ur Verification 3940 ng/mL (<100)
== END 2023-08-18 10:03 | disposition home or self-care (01) | DRG 885 ==
LOC: SUATTDRO → ED 04:04 → SUATTDRO 07:22 → EDINP 07:22 → 4W 09:33 → 3N 23:15